=== PATIENT | female | born 2000 | race Caucasian/White ===

== ENCOUNTER 2019-06-03 16:09 | Emergency (ER) | payer MEDICAID ==
[~2019-06-03] VITALS: Ht 165.1 cm; Wt 79.0 kg
[~2019-06-03 16:09] MED LIST: OMEP20CA14 MT
[2019-06-03] MEDS ORDERED: SODIUM CHLORIDE 0.9% 1,000 ML IV ONE (18:26)
[2019-06-03] MEDS ORDERED: ONDANSETRON HCL 4MG/2ML INJ IV STA (18:26)
[2019-06-03] MEDS ORDERED: PANTOPRAZOLE SODIUM 40 MG/VIAL IV STA (18:26)
[2019-06-03] MEDS ORDERED: MAGNESIUM/ALUMINUM HYDROXIDE/SIMETHICONE 30ML UDC PO STA (18:26)
[2019-06-03 18:52] LABS: BASOPHILS % 0.8 % (0.0-2.0); EOSINOPHILS % 2.6 % (0.0-5.0); HEMATOCRIT. 42.3 % (36.0-48.0); HEMOGLOBIN. 14.3 g/dL (12.0-16.0); LYMPHOCYTES % 27.1 % (20.0-50.0); MEAN CORPUSCULAR VOLUME 88.8 fL (81.0-99.0); MEAN PLATELET VOLUME 8.1 fl (7.4-10.4); MONOCYTES % 3.9 % (2.0-8.0); NEUTROPHILS % 65.6 % (40.0-76.0); PLATELET 320 x1000/uL (130-400); RED BLOOD CELL COUNT 4.76 mill/uL (4.2-5.4); RED CELL DISTRIBUTION WIDTH 14.3 % (11.6-14.6)
[2019-06-03 18:59] LABS: CHLORIDE 107 mEq/L (98-107)
[2019-06-03 19:00] LABS: PROTHROMBIN TIME 11.2 sec (9.6-11.0)
[2019-06-03 19:05] LABS: ETHANOL BLOOD < 10 mg/dL
[2019-06-03 19:06] LABS: *AMPHETAMINES SCREEN URINE NEGATIVE (NEGATIVE); *BARBITURATES SCREEN URINE NEGATIVE (NEGATIVE); *BENZODIAZEPINES SCREEN URINE NEGATIVE (NEGATIVE); *COCAINE SCREEN URINE NEGATIVE (NEGATIVE); METHADONE URINE SCREEN NEGATIVE (NEGATIVE); OPIATES URINE SCREEN NEGATIVE (NEGATIVE)
[2019-06-03 19:07] LABS: HCG SCREEN NEGATIVE
[2019-06-03 19:07] LABS: PHENCYCLIDINE URINE SCREEN NEGATIVE (NEGATIVE)
[2019-06-03 19:10] LABS: CANNABINOID URINE SCREEN PRESUMTIVE POSITIVE (NEGATIVE)
[2019-06-03 20:12] VITALS: BP 119/69
== END 2019-06-03 20:25 | disposition home or self-care (01) ==
LOC: ER 16:09
DX: R10.13 Epigastric pain (principal)
CPT/HCPCS: 36415; 74176; 80053; 80305; 80320; 83690; 84703; 85025; 85610; 96361; 96374; 96375; 99284; C9113; J2405; J7030; G0480

== ENCOUNTER 2019-06-04 13:32 | Emergency (ER) | payer MEDICAID ==
[~2019-06-04] VITALS: Ht 157.5 cm; Wt 82.0 kg
[2019-06-04] MEDS ORDERED: DICYCLOMINE 10 MG/5 ML ORAL SYR PO STA (14:12)
[2019-06-04] MEDS ORDERED: MAGNESIUM/ALUMINUM HYDROXIDE/SIMETHICONE 30ML UDC PO STA (14:12)
[2019-06-04] MEDS ORDERED: VISCOUS LIDOCAINE 2% 15 ML UDC PO STA (14:12)
[2019-06-04 14:37] LABS: BASOPHILS % 0.4 % (0.0-2.0); EOSINOPHILS % 1.9 % (0.0-5.0); HEMATOCRIT. 41.1 % (36.0-48.0); LYMPHOCYTES % 21.2 % (20.0-50.0); MEAN CORPUSCULAR HEMOGLOBIN 30.1 pg (28.0-32.0); MEAN CORPUSCULAR VOLUME 88.3 fL (81.0-99.0); MEAN PLATELET VOLUME 8.1 fl (7.4-10.4); MONOCYTES % 4.9 % (2.0-8.0); NEUTROPHILS % 71.6 % (40.0-76.0); PLATELET 321 x1000/uL (130-400); RED BLOOD CELL COUNT 4.66 mill/uL (4.2-5.4); RED CELL DISTRIBUTION WIDTH 13.9 % (11.6-14.6)
[2019-06-04 14:39] LABS: CLARITY URINE TURBID (CLEAR); COLOR URINE YELLOW (YELLOW); KETONES URINE 2+ (NEGATIVE); LEUKOCYTE ESTERASE URINE NEGATIVE (NEGATIVE); NITRITE URINE NEGATIVE (NEGATIVE); OCCULT BLOOD URINE 1+ (NEGATIVE); PROTEIN URINE NEGATIVE (NEGATIVE); SPECIFIC GRAVITY URINE 1.025 (1.005-1.030); UROBILINOGEN URINE 0.2 E.U./dL (0.2-1.0)
[2019-06-04 14:43] LABS: CHLORIDE 108 mEq/L (98-107)
[2019-06-04 17:00] VITALS: BP 120/80
== END 2019-06-04 17:26 | disposition home or self-care (01) ==
LOC: ER 13:32
DX: R10.9 Unspecified abdominal pain (principal); R11.2 Nausea with vomiting, unspecified
CPT/HCPCS: 36415; 74176; 80053; 81003; 81025; 85025; 99284